=== PATIENT | male | born 1990 | race Hispanic/Latino ===

== ENCOUNTER 2020-04-11 01:29 | Inpatient (IN) | payer OTHER ==
[2020-04-11] MEDS ORDERED: NALOXONE 0.4 MG/1 ML INJ IV ONE (01:37)
[2020-04-11] MEDS ORDERED: SODIUM CHLORIDE 0.9% 1000 ML 1,000 ML IV ONE ×3 (01:37→03:39)
[2020-04-11] MEDS ORDERED: NALOXONE 0.4 MG/1 ML INJ IV PRN (01:38)
--- NOTE | 2020-04-11 01:41 | Emergency Department Report ---
History of Present Illness - General Chief Complaint: Overdose Stated Complaint: OVERDOSE Time Seen by Provider: 04/11/20 01:29 Source: police, EMS Mode of arrival: Ambulatory Limitations: Altered Mental Status - History of Present Illness Initial Comments: Patient is a 29-year-old male that presents emergency room for overdose. Patient brought in from a local [facility]pc. Patient accompanied by police. Patient brought in by EMS. EMS states they found the patient minimally responsive, minimal respiratory effort and cyanotic. Patient was given Narcan and the patient's color improved and the patient began breathing better and his oxygen saturation improved. Patient given more Narcan after arrival to the ER. After Narcan, the patient answer questions verbally. Patient states that he took heroin and methamphetamines. Patient states he does not know to get high. Patient denies suicidal and homicidal ideation. Patient denies depression. Patient denies pain. Patient denies any complaints. Patient denies recent travel. Patient denies recent international travel. Patient denies exposure to the novel coronavirus. Patient denies sick contacts. Patient denies fever and chills. Patient denies cough. Patient denies diarrhea. Patient denies coming in contact with anybody with symptoms of the novel coronavirus. Patient brought in by EMS. Report received from EMS. EMS states that the patient was given 2 of Narcan and fluids. Complaint: accidental overdose -: Sudden How Overdose Was Discovered: other Context: Accidental Overdose: wanted to get high Treatments Prior to Arrival: oxygen, narcan, IV fluids - Related Data Allergies Allergy/AdvReac Type Severity Reaction Status Date / Time divalproex sodium Allergy Unknown Verified 04/11/20 01:46 [From [facility]] ED Review of Systems ROS: Stated complaint: OVERDOSE Other details as noted in HPI Constitutional: denies: chills, fever Eyes: denies: eye pain, eye discharge, vision change ENT: denies: ear pain, throat pain Respiratory: denies: cough, shortness of breath, wheezing Cardiovascular: denies: chest pain, palpitations Endocrine: no symptoms reported Gastrointestinal: denies: abdominal pain, nausea, diarrhea Genitourinary: denies: urgency, dysuria Musculoskeletal: denies: back pain, joint swelling, arthralgia Skin: denies: rash, lesions Neurological: denies: headache, weakness, paresthesias Psychiatric: denies: anxiety, depression, auditory hallucinations, visual hallucinations, homicidal thoughts, suicidal thoughts Hematological/Lymphatic: denies: easy bleeding, easy bruising ED Past Medical Hx - Past Medical History Previous Medical History?: No - Surgical History Past Surgical History?: No - Family History Family history: no significant - Social History Smoking Status: Never Smoker Substance Use Type: Heroin, Methamphetamines ED Physical Exam - General Limitations: No Limitations General appearance: alert, in no apparent distress - Head Head exam: Present: atraumatic, normocephalic - Eye Eye exam: Present: normal appearance, PERRL Pupils: Present: normal accommodation - ENT ENT exam: Present: mucous membranes moist - Neck Neck exam: Present: normal inspection - Respiratory Respiratory exam: Present: normal lung sounds bilaterally. Absent: respiratory distress, wheezes, rales - Cardiovascular Cardiovascular Exam: Present: regular rate, normal rhythm. Absent: systolic murmur, diastolic murmur, rubs, gallop - GI/Abdominal GI/Abdominal exam: Present: soft, normal bowel sounds - Rectal Rectal exam: Present: deferred - Extremities Exam Extremities exam: Present: normal inspection - Back Exam Back exam: Present: normal inspection - Neurological Exam Neurological exam: Present: alert, oriented X3 - Psychiatric Psychiatric exam: Present: normal affect, normal mood - Skin Skin exam: Present: warm, dry, intact, normal color. Absent: rash ED Course Vital Signs 04/11/20 04/11/20 04/11/20 01:30 01:45 02:00 Temperature 97.5 F L Pulse Rate 97 H 101 H 104 H Respiratory 24 21 18 Rate Blood Pressure 117/84 Blood Pressure 123/76 [Right] O2 Sat by Pulse 97 99 Oximetry 04/11/20 04/11/20 02:15 02:30 Temperature Pulse Rate 105 H 96 H Respiratory 9 L 9 L Rate Blood Pressure 125/76 127/81 Blood Pressure [Right] O2 Sat by Pulse 99 Oximetry - Reevaluation(s) Reevaluation #1: Initial evaluation done. During initial evaluation, the patient was noted to have a decreased level of consciousness. Patient was given 2 mg of Narcan by EMS and the patient's respiratory status and oxygenation improved. Patient give n another 2 mg of Narcan here and the patient became more arousable. Patient is answering some questions now. Patient states he took some drugs but is not sure what. 04/11/20 01:36 Reevaluation #2: Patient is more alert. Patient answering questions appropriately. Patient states he took heroin and methamphetamines. 04/11/20 01:41 Reevaluation #3: I discussed all results with patient. I discussed plan of care with patient. Patient agrees with plan of care and admission. Patient to be admitted to the hospitalist service. 04/11/20 03:25 - Consultations Consultation #1: Hospitalist consulted for admission. Hospitalist to admit patient. 04/11/20 03:25 ED Medical Decision Making - Lab Data Result diagrams: 04/11/20 02:00 04/11/20 02:00 - EKG Data -: EKG Interpreted by Me EKG shows normal: sinus rhythm, axis, intervals, QRS complexes, ST-T waves Rate: tachycardia - Radiology Data Radiology results: report reviewed, image reviewed interpreted by me: Chest x-ray: No pneumonia, no pneumothorax, no foreign body, no osseous findings, no acute findings CHEST 1 VIEW INDICATION / CLINICAL INFORMATION: od. Dyspnea. FINDINGS: SUPPORT DEVICES: None. HEART / MEDIASTINUM: No significant abnormality. LUNGS / PLEURA: No significant pulmonary or pleural abnormality. No pneumothorax. ADDITIONAL FINDINGS: No significant additional findings. IMPRESSION: 1. No acute findings. CT head without contrast INDICATION : Altered mental status TECHNIQUE: Axial imaging performed from the skull apex through the skull base without the use of contrast. All CT examinations performed at this facility utilize dose modulation, iterative reconstruction or weight-based dosing, when appropriate, to reduce radiation dose to as low as reasonably achievable. COMPARISON: None FINDINGS: No acute intracranial hemorrhage or parenchymal abnormality. Vent ricles are normal in size and appear symmetric. Soft tissues including the orbits appear normal. No acute osseous abnormality. Sinuses and mastoid air cells are clear. IMPRESSION: No acute abnormality. - Medical Decision Making Patient is a 29-year-old male that presents emergency room with overdose. Patient is in a local [facility] and was brought here by EMS. EMS states they found the patient unresponsive and cyanotic and minimal respirations and history of se lf. Patient given 2 of Narcan and his respirations and responsiveness slightly improved. Patient given 2 more milligrams of Narcan in the ER and the patient became more alert. Patient's vital signs and oxygenation stable the entire time in ER. Patient had decreased responsiveness on initial evaluation. Patient had a head CT due to the altered mental status and decreased p.o. with a head CT was negative for acute findings. Patient had a chest x-ray which was normal. Patient had labs done which were consistent with abnormal LFTs and acute renal failure. Patient given fluids in the ER. Patient admitted to the hospital service for further evaluation and treatment. Patient require observation due to the acute renal failure. - Differential Diagnosis Overdose, electrolyte imbalance, altered mental status, ICH, Critical Care Time: Yes Critical care time in (mins) excluding proc time.: 35 Critical care attestation.: If time is entered above; I have spent that time in minutes in the direct care of this critically ill patient, excluding procedure time. Critical Care Time: 35 minutes ED Disposition Clinical Impression: Hyperkalemia, Decreased responsiveness, Abnormal LFTs, Hyperglycemia Overdose Qualifiers: Encounter type: initial encounter Injury intent: accidental or unintentional Qualified Code(s): T50.901A - Poisoning by unspecified drugs, medicaments and biological substances, accidental (unintentional), initial encounter Acute renal failure (ARF) Qualifiers: Acute renal failure type: unspecified Qualified Code(s): N17.9 - Acute kidney failure, unspecified Altered mental state Qualifiers: Altered mental status type: unspecified Qualified Code(s): R41.82 - Altered mental status, unspecified Disposition: DC-09 OP ADMIT IP TO THIS HOSP Is pt being admited?: Yes Does the pt Need Aspirin: No Condition: Critical Time of Disposition: 04:15
[2020-04-11] MEDS ORDERED: ONDANSETRON 4 MG/2 ML INJ ONE (02:07)
[2020-04-11] MEDS ORDERED: ONDANSETRON 4 MG/2 ML INJ IV ONE ×2 (02:10→03:58)
[2020-04-11 02:34] LABS: Hemoglobin 13.5 gm/dl (11.8-15.2); Mean Corpuscular HGB Conc 32 % (32-34); Mean Corpuscular Volume 86 fl (84-94); Platelet Count 370 K/mm3 (140-440); Red Blood Count 4.91 M/mm3 (3.65-5.03); Red Cell Distribution Width 14.1 % (13.2-15.2)
[2020-04-11 03:00] LABS: Albumin 4.2 g/dL (3.9-5); Calcium 8.5 mg/dL (8.4-10.2)
[2020-04-11 03:28] LABS: Amphetamine Screen,Urine PRESUMPTIVE POSITIVE; Benzodiazepines Screen,Urine PRESUMPTIVE NEGATIVE; Cannabinoid Screen,Urine PRESUMPTIVE NEGATIVE; Cocaine Screen,Urine PRESUMPTIVE NEGATIVE; Methadone Screen,Urine PRESUMPTIVE NEGATIVE; Opiate Screen,Urine PRESUMPTIVE NEGATIVE
[2020-04-11 03:44] LABS: Bacteria,Urine 1+ /HPF (Negative); Bilirubin,Urine NEG (Negative); Blood,Urine SM (Negative); Color,Urine Yellow (Yellow); Mucus,Urine FEW /HPF; Urobilinogen,Urine < 2.0 mg/dL (<2.0)
--- NOTE | 2020-04-11 03:54 | XRay Report ---
CHEST 1 VIEW INDICATION / CLINICAL INFORMATION: od. Dyspnea. FINDINGS: SUPPORT DEVICES: None. HEART / MEDIASTINUM: No significant abnormality. LUNGS / PLEURA: No significant pulmonary or pleural abnormality. No pneumothorax. ADDITIONAL FINDINGS: No significant additional findings. IMPRESSION: 1. No acute findings. Signer Name: Naga Cohen MD Signed: 04/11/2020 3:49 AM Workstation Name: [id number]
--- NOTE | 2020-04-11 04:04 | Cat Scan Report ---
CT head without contrast INDICATION : Altered mental status TECHNIQUE: Axial imaging performed from the skull apex through the skull base without the use of con trast. All CT examinations performed at this facility utilize dose modulation, iterative reconstruct ion or weight-based dosing, when appropriate, to reduce radiation dose to as low as reasonably achiev able. COMPARISON: None FINDINGS: No acute intracranial hemorrhage or parenchymal abnormality. Ventricles are normal in si ze and appear symmetric. Soft tissues including the orbits appear normal. No acute osseous abnorm ality. Sinuses and mastoid air cells are clear. IMPRESSION: No acute abnormality. Signer Name: Naga Cohen MD Signed: 04/11/2020 3:59 AM Workstation Name: [id number]
[2020-04-11] MEDS ORDERED: NALOXONE 2 MG/2 ML INJ ONE (04:21)
[2020-04-11 05:00] LABS: Basophils % (Manual) 0 % (0.0-1.8); Eosinophils % (Manual) 0 % (0.0-4.3); Total Cells Counted 100
[2020-04-11 05:03] LABS: Anisocytosis 1+; Ovalocytes Few; Platelet Estimate Consistent w Auto
[2020-04-11] MEDS ORDERED: ACETAMINOPHEN 325 MG TAB PO PRN (05:19)
[2020-04-11] MEDS ORDERED: ONDANSETRON 4 MG/2 ML INJ IV PRN (05:19)
--- NOTE | 2020-04-11 05:42 | History and Physical Report ---
History of Present Illness Date of examination: 04/11/20 Date of admission: 04/11/20 04:16 Chief complaint: Patient was brought in by correction officials with decreased level of consciousness History of present illness: Patient is a 29-year-old male that presents emergency room for overdose. Patient brought in from a local [facility]. Patient accompanied by police. Patient brought in by EMS , minimally responsive with decreased respirations, was given Narcan and the patient's color improved and the patient began breathing better and his oxygen saturation improved. Patient given more Narcan x 2 doses At the time of my examination patient was alert and oriented .patient states that he took heroin and methamphetamines. He denies suicidal and homicidal ideation. denies depression. Patient also had a large emesis during my evaluation and altogether apparently had 3 episodes of emesis. Earlier due to his decreased mentation, patient had a CT of the head which was normal. Upon further work-up he was noted to be in acute renal failure and multiple other lab abnormalities and is being admitted for further management. He denies exposure to coronavirus or sick contacts. Past History Past Medical History: No medical history Past Surgical History: Other (Splenectomy) Social history: smoking. denies: alcohol abuse Family history: no significant family history Medications and Allergies Allergies Allergy/AdvReac Type Severity Reaction Status Date / Time divalproex sodium Allergy Unknown Verified 04/11/20 01:46 [From [facility]] Active Meds: Active Medications Acetaminophen (Tylenol) 650 mg PO Q4H PRN PRN Reason: Pain MILD(1-3)/Fever >100.5/FITZGERALD Sodium Chloride (Nacl 0.9% 1000 Ml) 1,000 mls @ 100 mls/hr IV DIRECT TANVI Naloxone HCl (Naloxone) 0.1 mg IV Q2MIN PRN PRN Reason: Res Rate </= 8 or 02 SAT < 92% Last Admin: 04/11/20 04:29 Dose: 0.1 mg Documented by: Ondansetron HCl (Zofran) 4 mg IV Q8H PRN PRN Reason: Nausea And Vomiting Sodium Chloride (Sodium Chloride Flush Syringe 10 Ml) 10 ml IV BID TANVI Sodium Chloride (Sodium Chloride Flush Syringe 10 Ml) 10 ml IV PRN PRN PRN Reason: LINE FLUSH Review of Systems Constitutional: no weight loss, no weight gain, no fever, no chills Ears, nose, mouth and throat: no ear pain, no sore throat, no headache Cardiovascular: no chest pain, no shortness of breath, no high blood pressure Gastrointestinal: vomiting, no abdominal pain, no nausea, no diarrhea, no constipation, no hematemesis, no melena Genitourinary Male: no dysuria Rectal: no pain Musculoskeletal: no neck pain, no muscle weakness Integumentary: no rash Neurological: syncope, no seizures Psychiatric: no anxiety, no depression Exam - Constitutional Vitals: Temp Pulse Resp BP Pulse Ox 97.5 F L 88 12 115/82 94 04/11/20 01:30 04/11/20 05:00 04/11/20 05:00 04/11/20 05:00 04/11/20 04:45 General appearance: Present: no acute distress, well-nourished - EENT Eyes: Present: PERRL, EOM intact ENT: hearing intact, clear oral mucosa - Neck Neck: Present: supple, normal ROM. Absent: masses or JVD - Respiratory Respiratory effort: normal Respiratory: bilateral: CTA - Cardiovascular Rhythm: regular Heart Sounds: Present: S1 & S2 - Extremities Extremities: No edema - Abdominal General gastrointestinal: Present: soft, non-tender Male genitourinary: Present: deferred - Rectal Rectal Exam: deferred - Integumentary Integumentary: Present: clear. Absent: rash - Musculoskeletal Musculoskeletal: strength equal bilaterally - Psychiatric Psychiatric: appropriate mood/affect - Neurologic Neurologic: no focal deficits Results - Labs CBC & Chem 7: 04/11/20 02:00 04/11/20 02:00 Labs: Abnormal lab results 04/11/20 04/11/20 04/11/20 Range/Units 02:00 02:00 02:00 WBC 12.8 H (4.5-11.0) K/mm3 Seg Neuts % (Manual) 92.0 H (40.0-70.0) % Lymphocytes % (Manual) 6.0 L (13.4-35.0) % Seg Neutrophils # Man 11.8 H (1.8-7.7) K/mm3 Lymphocytes # (Manual) 0.8 L (1.2-5.4) K/mm3 Potassium 5.1 H (3.6-5.0) mmol/L Carbon Dioxide 15 L (22-30) mmol/L BUN 27 H (9-20) mg/dL Creatinine 1.6 H (0.8-1.3) mg/dL Glucose 264 H (75-100) mg/dL AST 194 H (5-40) units/L ALT 152 H (7-56) units/L Ammonia 77.0 H (25-60) umol/L Total Creatine Kinase 394 H (55-170) units/L Salicylates (2.8-20.0) mg/dL Acetaminophen (10.0-30.0) ug/mL 04/11/20 04/11/20 Range/Units 02:00 02:00 WBC (4.5-11.0) K/mm3 Seg Neuts % (Manual) (40.0-70.0) % Lymphocytes % (Manual) (13.4-35.0) % Seg Neutrophils # Man (1.8-7.7) K/mm3 Lymphocytes # (Manual) (1.2-5.4) K/mm3 Potassium (3.6-5.0) mmol/L Carbon Dioxide (22-30) mmol/L BUN (9-20) mg/dL Creatinine (0.8-1.3) mg/dL Glucose (75-100) mg/dL AST (5-40) units/L ALT (7-56) units/L Ammonia (25-60) umol/L Total Creatine Kinase (55-170) units/L Salicylates < 0.3 L (2.8-20.0) mg/dL Acetaminophen 5.0 L (10.0-30.0) ug/mL Assessment and Plan - Patient Problems (1) Acute renal failure (ARF) Current Visit: Yes Status: Acute Qualifiers: Acute renal failure type: unspecified Qualified Code(s): N17.9 - Acute kidney failure, unspecified Plan to address problem: Baseline renal function status is not known Mild IV fluids Monitor renal function Avoid nephrotoxins Consider renal consult if not improving (2) Abnormal LFTs Current Visit: Yes Status: Acute Plan to address problem: Patient denies history of hepatitis B or C Monitor LFTs Consider GI consult if repeat LFTs are not trending down (3) Decreased responsiveness Current Visit: Yes Status: Acute Plan to address problem: Secondary to acute overdose on heroine and methamphetamine Improved with Narcan x2 doses CT of the head results reviewed (4) Hyperglycemia Current Visit: Yes Status: Acute Plan to address problem: Patient denies history of diabetes Check A1c (5) Hyperkalemia Current Visit: Yes Status: Acute Plan to address problem: Mild Likely secondary to renal insufficiency/dehydration IV fluids Monitor electrolytes (6) Overdose Current Visit: Yes Status: Acute Qualifiers: Encounter type: initial encounter Injury intent: accidental or unintentional Qualified Code(s): T50.901A - Poisoning by unspecified drugs, medicaments and biological substances, accidental (unintentional), initial encounter Plan to address problem: Patient denies any history of depression or suicidal ideation Overdosed on heroin and methamphetamine Responded to Narcan (7) Leukocytosis Current Visit: Yes Status: Acute Qualifiers: Leukocytosis type: unspecified Qualified Code(s): D72.829 - Elevated white blood cell count, unspecified Plan to address problem: Likely reactive No signs of infection Monitor CBC
--- NOTE | 2020-04-11 17:07 | Progress Note ---
Assessment and Plan Assessment and plan: --Acute metabolic encephalopathy; present on admission Multifactorial, polysubstance abuse Drug overdose, acute renal failure, acute liver failure Hyperkalemia and hyperglycemia Patient more alert and awake Symptoms slightly improved Treat the underlying cause --Acute kidney injury; Due to vasomotor nephropathy Gentle hydration, avoid nephrotoxins Monitor renal function, nephrology evaluation if needed --Acute liver failure/transaminitis; Probably drug-induced versus alcohol related Closely monitor LFTs, if no improvement Check abdominal ultrasound Consider GI evaluation if needed --Hyperammonemia; Probably hepatic encephalopathy Lactulose, closely monitor ammonia levels --Hyperglycemia; Patient has no history of diabetes mellitus Accu-Chek sliding scale coverage Check hemoglobin A1c 6.2, supportive care --Hyperkalemia; Closely monitor electrolytes --Mild elevation of CK Mild rhabdomyolysis IV hydration monitor renal function Avoid nephrotoxins --DVT prophylaxis; Lovenox renal dose We will closely monitor the patient and adjust management as needed Plan of care reviewed with the patient and the security officers at the bedside As well as his nurse History Interval history: I have seen and examined the patient at the bedside this morning Correctional officers at the bedside in the room Patient complains of generalized body pains Denies nausea vomiting Admitted with possible drug/polysubstance overdose Patient is alert and awake Responding to simple commands Vital signs noted Hospitalist Physical - Constitutional Vitals: Temp Pulse Resp BP Pulse Ox 97.8 F 65 20 111/46 99 04/11/20 11:26 04/11/20 11:26 04/11/20 11:26 04/11/20 11:26 04/11/20 11:26 General appearance: Present: mild distress, well-nourished - EENT Eyes: Present: PERRL, EOM intact - Neck Neck: Present: supple, normal ROM - Respiratory Respiratory effort: normal Respiratory: bilateral: diminished, negative: rales, rhonchi, wheezing - Cardiovascular Rhythm: regular Heart Sounds: Present: S1 & S2 - Extremities Extremities: no ischemia, No edema - Abdominal General gastrointestinal: soft, non-tender, non-distended, normal bowel sounds - Integumentary Integumentary: Present: clear, warm - Psychiatric Psychiatric: appropriate mood/affect, cooperative - Neurologic Neurologic: moves all extremities Results - Labs CBC & Chem 7: 04/11/20 02:00 04/11/20 02:00 Labs: Laboratory Last Values WBC 12.8 K/mm3 (4.5-11.0) H 04/11/20 02:00 RBC 4.91 M/mm3 (3.65-5.03) 04/11/20 02:00 Hgb 13.5 gm/dl (11.8-15.2) 04/11/20 02:00 Hct 42.0 % (35.5-45.6) 04/11/20 02:00 MCV 86 fl (84-94) 04/11/20 02:00 MCH 28 pg (28-32) 04/11/20 02:00 MCHC 32 % (32-34) 04/11/20 02:00 RDW 14.1 % (13.2-15.2) 04/11/20 02:00 Plt Count 370 K/mm3 (140-440) 04/11/20 02:00 Add Manual Diff Complete 04/11/20 02:00 Total Counted 100 04/11/20 02:00 Seg Neutrophils % [place] 04/11/20 02:00 Seg Neuts % (Manual) 92.0 % (40.0-70.0) H 04/11/20 02:00 Band Neutrophils % 0 % 04/11/20 02:00 Lymphocytes % (Manual) 6.0 % (13.4-35.0) L 04/11/20 02:00 Reactive Lymphs % (Man) 0 % 04/11/20 02:00 Monocytes % (Manual) 2.0 % (0.0-7.3) 04/11/20 02:00 Eosinophils % (Manual) 0 % (0.0-4.3) 04/11/20 02:00 Basophils % (Manual) 0 % (0.0-1.8) 04/11/20 02:00 Metamyelocytes % 0 % 04/11/20 02:00 Myelocytes % 0 % 04/11/20 02:00 Promyelocytes % 0 % 04/11/20 02:00 Blast Cells % 0 % 04/11/20 02:00 Nucleated RBC % Not Reportable 04/11/20 02:00 Seg Neutrophils # Man 11.8 K/mm3 (1.8-7.7) H 04/11/20 02:00 Band Neutrophils # 0.0 K/mm3 04/11/20 02:00 Lymphocytes # (Manual) 0.8 K/mm3 (1.2-5.4) L 04/11/20 02:00 Abs React Lymphs (Man) 0.0 K/mm3 04/11/20 02:00 Monocytes # (Manual) 0.3 K/mm3 (0.0-0.8) 04/11/20 02:00 Eosinophils # (Manual) 0.0 K/mm3 (0.0-0.4) 04/11/20 02:00 Basophils # (Manual) 0.0 K/mm3 (0.0-0.1) 04/11/20 02:00 Metamyelocytes # 0.0 K/mm3 04/11/20 02:00 Myelocytes # 0.0 K/mm3 04/11/20 02:00 Promyelocytes # 0.0 K/mm3 04/11/20 02:00 Blast Cells # 0.0 K/mm3 04/11/20 02:00 WBC Morphology Not Reportable 04/11/20 02:00 Hypersegmented Neuts Not Reportable 04/11/20 02:00 Hyposegmented Neuts Not Reportable 04/11/20 02:00 Hypogranular Neuts Not Reportable 04/11/20 02:00 Smudge Cells Not Reportable 04/11/20 02:00 Toxic Granulation Not Reportable 04/11/20 02:00 Toxic Vacuolation Not Reportable 04/11/20 02:00 Dohle Bodies Not Reportable 04/11/20 02:00 Pelger-Huet Anomaly Not Reportable 04/11/20 02:00 Marge Rods Not Reportable 04/11/20 02:00 Platelet Estimate Consistent w auto 04/11/20 02:00 Clumped Platelets Not Reportable 04/11/20 02:00 Plt Clumps, EDTA Not Reportable 04/11/20 02:00 Large Platelets Not Reportable 04/11/20 02:00 Giant Platelets Not Reportable 04/11/20 02:00 Platelet Satelliting Not Reportable 04/11/20 02:00 Plt Morphology Comment Not Reportable 04/11/20 02:00 RBC Morphology Not Reportable 04/11/20 02:00 Dimorphic RBCs Not Reportable 04/11/20 02:00 Polychromasia Not Reportable 04/11/20 02:00 Hypochromasia Not Reportable 04/11/20 02:00 Poikilocytosis Not Reportable 04/11/20 02:00 Anisocytosis 1+ 04/11/20 02:00 Microcytosis Not Reportable 04/11/20 02:00 Macrocytosis Not Reportable 04/11/20 02:00 Spherocytes Not Reportable 04/11/20 02:00 Pappenheimer Bodies Not Reportable 04/11/20 02:00 Sickle Cells Not Reportable 04/11/20 02:00 Target Cells Not Reportable 04/11/20 02:00 Tear Drop Cells Not Reportable 04/11/20 02:00 Ovalocytes Few 04/11/20 02:00 Helmet Cells Not Reportable 04/11/20 02:00 Peng-[place] Bodies Not Reportable 04/11/20 02:00 [place] Rings Not Reportable 04/11/20 02:00 Jermaine Cells Not Reportable 04/11/20 02:00 Bite Cells Not Reportable 04/11/20 02:00 Crenated Cell Not Reportable 04/11/20 02:00 Elliptocytes Not Reportable 04/11/20 02:00 Acanthocytes (Spur) Not Reportable 04/11/20 02:00 Rouleaux Not Reportable 04/11/20 02:00 Hemoglobin C Crystals Not Reportable 04/11/20 02:00 Schistocytes Not Reportable 04/11/20 02:00 Malaria parasites Not Reportable 04/11/20 02:00 Albert Bodies Not Reportable 04/11/20 02:00 Hem Pathologist Commnt No 04/11/20 02:00 Sodium 140 mmol/L (137-145) 04/11/20 02:00 Potassium 5.1 mmol/L (3.6-5.0) H 04/11/20 02:00 Chloride 103.1 mmol/L (98-107) 04/11/20 02:00 Carbon Dioxide 15 mmol/L (22-30) L 04/11/20 02:00 Anion Gap 27 mmol/L 04/11/20 02:00 BUN 27 mg/dL (9-20) H 04/11/20 02:00 Creatinine 1.6 mg/dL (0.8-1.3) H 04/11/20 02:00 Estimated GFR 52 ml/min 04/11/20 02:00 BUN/Creatinine Ratio 17 % 04/11/20 02:00 Glucose 264 mg/dL (75-100) H 04/11/20 02:00 Hemoglobin A1c 6.2 % (4-6) H 04/11/20 02:00 Calcium 8.5 mg/dL (8.4-10.2) 04/11/20 02:00 Total Bilirubin 0.50 mg/dL (0.1-1.2) 04/11/20 02:00 AST 194 units/L (5-40) H 04/11/20 02:00 ALT 152 units/L (7-56) H 04/11/20 02:00 Alkaline Phosphatase 68 units/L (35-129) 04/11/20 02:00 Ammonia 77.0 umol/L (25-60) H 04/11/20 02:00 Total Creatine Kinase 394 units/L (55-170) H 04/11/20 02:00 Total Protein 6.4 g/dL (6.3-8.2) 04/11/20 02:00 Albumin 4.2 g/dL (3.9-5) 04/11/20 02:00 Albumin/Globulin Ratio 1.9 % 04/11/20 02:00 Urine Color Yellow (Yellow) 04/11/20 03:01 Urine Turbidity Slightly-cloudy (Clear) 04/11/20 03:01 Urine pH 6.0 (5.0-7.0) 04/11/20 03:01 Ur Specific [place] 1.012 (1.003-1.030) 04/11/20 03:01 Urine Protein 100 mg/dl mg/dL (Negative) 04/11/20 03:01 Urine Glucose (UA) >=500 mg/dL (Negative) 04/11/20 03:01 Urine Ketones Neg mg/dL (Negative) 04/11/20 03:01 Urine Blood Sm (Negative) 04/11/20 03:01 Urine Nitrite Neg (Negative) 04/11/20 03:01 Urine Bilirubin Neg (Negative) 04/11/20 03:01 Urine Urobilinogen < 2.0 mg/dL (<2.0) 04/11/20 03:01 Ur Leukocyte Esterase Neg (Negative) 04/11/20 03:01 Urine WBC (Auto) 3.0 /HPF (0.0-6.0) 04/11/20 03:01 Urine RBC (Auto) 7.0 /HPF (0.0-6.0) 04/11/20 03:01 Urine Bacteria (Auto) 1+ /HPF (Negative) 04/11/20 03:01 Urine Mucus Few /HPF 04/11/20 03:01 Salicylates < 0.3 mg/dL (2.8-20.0) L 04/11/20 02:00 Urine Opiates Screen Presumptive negative 04/11/20 03:01 Urine Methadone Screen Presumptive negative 04/11/20 03:01 Acetaminophen 5.0 ug/mL (10.0-30.0) L 04/11/20 02:00 Ur Barbiturates Screen Presumptive negative 04/11/20 03:01 Ur Phencyclidine Scrn Presumptive negative 04/11/20 03:01 Ur Amphetamines Screen Presumptive positive 04/11/20 03:01 U Benzodiazepines Scrn Presumptive negative 04/11/20 03:01 Urine Cocaine Screen Presumptive negative 04/11/20 03:01 U Marijuana (THC) Screen Presumptive negative 04/11/20 03:01 Drugs of Abuse Note Disclamer 04/11/20 03:01 Plasma/Serum Alcohol < 0.01 % (0-0.07) 04/11/20 02:00 Coronavirus (PCR) Negative (Negative) 04/11/20 08:38 Wh[place]/IV: IV Catheter Type [Left INT / Saline Lock Antecubital] Active Medications - Current Medications Current Medications: Generic Name Dose Route Start Last Admin Trade Name Freq PRN Reason Stop Dose Admin Acetaminophen 650 mg 04/11/20 05:19 Tylenol PO Q4H PRN Pain MILD(1-3)/Fever >100.5/FITZGERALD Sodium Chloride 1,000 mls @ 100 mls/hr 04/11/20 05:30 Nacl 0.9% 1000 Ml IV DIRECT TANVI Naloxone HCl 0.1 mg 04/11/20 01:38 04/11/20 04:29 Naloxone IV 0.1 mg Q2MIN PRN Administration Res Rate </= 8 or 02 SAT < 92% Ondansetron HCl 4 mg 04/11/20 05:19 Zofran IV Q8H PRN Nausea And Vomiting Sodium Chloride 10 ml 04/11/20 10:00 04/11/20 09:13 Sodium Chloride Flush Syringe 10 Ml IV 10 ml BID TANVI Administration Sodium Chloride 10 ml 04/11/20 05:19 Sodium Chloride Flush Syringe 10 Ml IV PRN PRN LINE FLUSH
[2020-04-12 05:13] LABS: Basophils % (Auto) 0.5 % (0.0-1.8); Eosinophils # (Auto) 0.2 K/mm3 (0.0-0.4); Eosinophils % (Auto) 2.6 % (0.0-4.3); Hematocrit 35.4 % (35.5-45.6); Hemoglobin 11.7 gm/dl (11.8-15.2); Lymphocytes # (Auto) 2.2 K/mm3 (1.2-5.4); Lymphocytes % (Auto) 29.1 % (13.4-35.0); Mean Corpuscular HGB Conc 33 % (32-34); Mean Corpuscular Volume 86 fl (84-94); Monocytes # (Auto) 0.8 K/mm3 (0.0-0.8); Monocytes % (Auto) 10.1 % (0.0-7.3); Platelet Count 287 K/mm3 (140-440); Red Cell Distribution Width 14.4 % (13.2-15.2)
[2020-04-12 05:27] LABS: Alanine Aminotransferase 78 units/L (7-56); Albumin 3.5 g/dL (3.9-5); BUN/Creatinine Ratio 11; Blood Urea Nitrogen 10 mg/dL (9-20); Calcium 8.2 mg/dL (8.4-10.2); Hemolysis Index 26
[2020-04-12] MEDS: SODIUM CHLORIDE 0.9% 1000 ML 1,000 ML IV SCH ×2 (09:45→20:14)
--- NOTE | 2020-04-12 17:59 | Progress Note ---
Assessment and Plan Assessment and plan: --Acute metabolic encephalopathy; present on admission. Multifactorial, polysubstance abuse Drug overdose, acute renal failure, acute liver failure Hyperkalemia and hyperglycemia Patient more alert and awake Completely resolved, patient is alert awake oriented x3 Not in acute distress responds appropriately --Acute kidney injury; resolved Due to vasomotor nephropathy Continue IV fluids, creatinine 1.6-0.9[n] --Acute liver failure/transaminitis; Probably drug-induced versus alcohol related LFTs are trending down --Hyperammonemia; Probably hepatic encephalopathy Lactulose, closely monitor ammonia levels --Hyperglycemia; Patient has no history of diabetes mellitus Accu-Chek sliding scale coverage Check hemoglobin A1c 6.2, supportive care --Hyperkalemia; corrected --Mild elevation of CK; improved IV hydration monitor renal function Avoid nephrotoxins --DVT prophylaxis; Lovenox renal dose Will monitor closely and adjust management as needed Possible discharge tomorrow if stable History Interval history: I have seen and examined the patient at the bedside this morning Patient's chart and medications reviewed media liaison officer at the bedside Patient feels better alert and awake No new complaints Vital signs noted Hospitalist Physical - Constitutional Vitals: Temp Pulse Resp BP Pulse Ox 98.5 F 62 18 111/58 96 04/12/20 08:22 04/12/20 08:22 04/12/20 08:22 04/12/20 08:22 04/12/20 08:22 General appearance: Present: no acute distress, well-nourished, other (Alert and awake, responding appropriately) - EENT Eyes: Present: PERRL, EOM intact - Neck Neck: Present: supple, normal ROM - Respiratory Respiratory effort: normal Respiratory: bilateral: diminished, negative: rales, rhonchi, wheezing - Cardiovascular Rhythm: regular Heart Sounds: Present: S1 & S2 - Extremities Extremities: no ischemia, No edema - Abdominal General gastrointestinal: soft, non-tender, non-distended, normal bowel sounds - Integumentary Integumentary: Present: clear, warm - Psychiatric Psychiatric: appropriate mood/affect, cooperative - Neurologic Neurologic: moves all extremities Results - Labs CBC & Chem 7: 04/12/20 04:44 04/12/20 04:44 Labs: Laboratory Last Values WBC 7.5 K/mm3 (4.5-11.0) 04/12/20 04:44 RBC 4.10 M/mm3 (3.65-5.03) 04/12/20 04:44 Hgb 11.7 gm/dl (11.8-15.2) L 04/12/20 04:44 Hct 35.4 % (35.5-45.6) L D 04/12/20 04:44 MCV 86 fl (84-94) 04/12/20 04:44 MCH 29 pg (28-32) 04/12/20 04:44 MCHC 33 % (32-34) 04/12/20 04:44 RDW 14.4 % (13.2-15.2) 04/12/20 04:44 Plt Count 287 K/mm3 (140-440) 04/12/20 04:44 Lymph % (Auto) 29.1 % (13.4-35.0) 04/12/20 04:44 [place] % (Auto) 10.1 % (0.0-7.3) H 04/12/20 04:44 Eos % (Auto) 2.6 % (0.0-4.3) 04/12/20 04:44 Baso % (Auto) 0.5 % (0.0-1.8) 04/12/20 04:44 Lymph # (Auto) 2.2 K/mm3 (1.2-5.4) 04/12/20 04:44 [place] # (Auto) 0.8 K/mm3 (0.0-0.8) 04/12/20 04:44 Eos # (Auto) 0.2 K/mm3 (0.0-0.4) 04/12/20 04:44 Baso # (Auto) 0.0 K/mm3 (0.0-0.1) 04/12/20 04:44 Add Manual Diff Complete 04/11/20 02:00 Total Counted 100 04/11/20 02:00 Seg Neutrophils % 57.7 % (40.0-70.0) 04/12/20 04:44 Seg Neuts % (Manual) 92.0 % (40.0-70.0) H 04/11/20 02:00 Band Neutrophils % 0 % 04/11/20 02:00 Lymphocytes % (Manual) 6.0 % (13.4-35.0) L 04/11/20 02:00 Reactive Lymphs % (Man) 0 % 04/11/20 02:00 Monocytes % (Manual) 2.0 % (0.0-7.3) 04/11/20 02:00 Eosinophils % (Manual) 0 % (0.0-4.3) 04/11/20 02:00 Basophils % (Manual) 0 % (0.0-1.8) 04/11/20 02:00 Metamyelocytes % 0 % 04/11/20 02:00 Myelocytes % 0 % 04/11/20 02:00 Promyelocytes % 0 % 04/11/20 02:00 Blast Cells % 0 % 04/11/20 02:00 Nucleated RBC % Not Reportable 04/11/20 02:00 Seg Neutrophils # 4.3 K/mm3 (1.8-7.7) 04/12/20 04:44 Seg Neutrophils # Man 11.8 K/mm3 (1.8-7.7) H 04/11/20 02:00 Band Neutrophils # 0.0 K/mm3 04/11/20 02:00 Lymphocytes # (Manual) 0.8 K/mm3 (1.2-5.4) L 04/11/20 02:00 Abs React Lymphs (Man) 0.0 K/mm3 04/11/20 02:00 Monocytes # (Manual) 0.3 K/mm3 (0.0-0.8) 04/11/20 02:00 Eosinophils # (Manual) 0.0 K/mm3 (0.0-0.4) 04/11/20 02:00 Basophils # (Manual) 0.0 K/mm3 (0.0-0.1) 04/11/20 02:00 Metamyelocytes # 0.0 K/mm3 04/11/20 02:00 Myelocytes # 0.0 K/mm3 04/11/20 02:00 Promyelocytes # 0.0 K/mm3 04/11/20 02:00 Blast Cells # 0.0 K/mm3 04/11/20 02:00 WBC Morphology Not Reportable 04/11/20 02:00 Hypersegmented Neuts Not Reportable 04/11/20 02:00 Hyposegmented Neuts Not Reportable 04/11/20 02:00 Hypogranular Neuts Not Reportable 04/11/20 02:00 Smudge Cells Not Reportable 04/11/20 02:00 Toxic Granulation Not Reportable 04/11/20 02:00 Toxic Vacuolation Not Reportable 04/11/20 02:00 Dohle Bodies Not Reportable 04/11/20 02:00 Pelger-Huet Anomaly Not Reportable 04/11/20 02:00 Marge Rods Not Reportable 04/11/20 02:00 Platelet Estimate Consistent w auto 04/11/20 02:00 Clumped Platelets Not Reportable 04/11/20 02:00 Plt Clumps, EDTA Not Reportable 04/11/20 02:00 Large Platelets Not Reportable 04/11/20 02:00 Giant Platelets Not Reportable 04/11/20 02:00 Platelet Satelliting Not Reportable 04/11/20 02:00 Plt Morphology Comment Not Reportable 04/11/20 02:00 RBC Morphology Not Reportable 04/11/20 02:00 Dimorphic RBCs Not Reportable 04/11/20 02:00 Polychromasia Not Reportable 04/11/20 02:00 Hypochromasia Not Reportable 04/11/20 02:00 Poikilocytosis Not Reportable 04/11/20 02:00 Anisocytosis 1+ 04/11/20 02:00 Microcytosis Not Reportable 04/11/20 02:00 Macrocytosis Not Reportable 04/11/20 02:00 Spherocytes Not Reportable 04/11/20 02:00 Pappenheimer Bodies Not Reportable 04/11/20 02:00 Sickle Cells Not Reportable 04/11/20 02:00 Target Cells Not Reportable 04/11/20 02:00 Tear Drop Cells Not Reportable 04/11/20 02:00 Ovalocytes Few 04/11/20 02:00 Helmet Cells Not Reportable 04/11/20 02:00 Peng-[place] Bodies Not Reportable 04/11/20 02:00 [place] Rings Not Reportable 04/11/20 02:00 Jermaine Cells Not Reportable 04/11/20 02:00 Bite Cells Not Reportable 04/11/20 02:00 Crenated Cell Not Reportable 04/11/20 02:00 Elliptocytes Not Reportable 04/11/20 02:00 Acanthocytes (Spur) Not Reportable 04/11/20 02:00 Rouleaux Not Reportable 04/11/20 02:00 Hemoglobin C Crystals Not Reportable 04/11/20 02:00 Schistocytes Not Reportable 04/11/20 02:00 Malaria parasites Not Reportable 04/11/20 02:00 Albert Bodies Not Reportable 04/11/20 02:00 Hem Pathologist Commnt No 04/11/20 02:00 Sodium 138 mmol/L (137-145) 04/12/20 04:44 Potassium 4.4 mmol/L (3.6-5.0) 04/12/20 04:44 Chloride 105.4 mmol/L (98-107) 04/12/20 04:44 Carbon Dioxide 28 mmol/L (22-30) D 04/12/20 04:44 Anion Gap 9 mmol/L 04/12/20 04:44 BUN 10 mg/dL (9-20) 04/12/20 04:44 Creatinine 0.9 mg/dL (0.8-1.3) 04/12/20 04:44 Estimated GFR > 60 ml/min 04/12/20 04:44 BUN/Creatinine Ratio 11 % 04/12/20 04:44 Glucose 97 mg/dL (75-100) 04/12/20 04:44 Hemoglobin A1c 6.2 % (4-6) H 04/11/20 02:00 Calcium 8.2 mg/dL (8.4-10.2) L 04/12/20 04:44 Total Bilirubin 0.40 mg/dL (0.1-1.2) 04/12/20 04:44 AST 31 units/L (5-40) 04/12/20 04:44 ALT 78 units/L (7-56) H 04/12/20 04:44 Alkaline Phosphatase 44 units/L (35-129) 04/12/20 04:44 Ammonia 77.0 umol/L (25-60) H 04/11/20 02:00 Total Creatine Kinase 394 units/L (55-170) H 04/11/20 02:00 Total Protein 5.2 g/dL (6.3-8.2) L 04/12/20 04:44 Albumin 3.5 g/dL (3.9-5) L 04/12/20 04:44 Albumin/Globulin Ratio 2.1 % 04/12/20 04:44 Urine Color Yellow (Yellow) 04/11/20 03:01 Urine Turbidity Slightly-cloudy (Clear) 04/11/20 03:01 Urine pH 6.0 (5.0-7.0) 04/11/20 03:01 Ur Specific [place] 1.012 (1.003-1.030) 04/11/20 03:01 Urine Protein 100 mg/dl mg/dL (Negative) 04/11/20 03:01 Urine Glucose (UA) >=500 mg/dL (Negative) 04/11/20 03:01 Urine Ketones Neg mg/dL (Negative) 04/11/20 03:01 Urine Blood Sm (Negative) 04/11/20 03:01 Urine Nitrite Neg (Negative) 04/11/20 03:01 Urine Bilirubin Neg (Negative) 04/11/20 03:01 Urine Urobilinogen < 2.0 mg/dL (<2.0) 04/11/20 03:01 Ur Leukocyte Esterase Neg (Negative) 04/11/20 03:01 Urine WBC (Auto) 3.0 /HPF (0.0-6.0) 04/11/20 03:01 Urine RBC (Auto) 7.0 /HPF (0.0-6.0) 04/11/20 03:01 Urine Bacteria (Auto) 1+ /HPF (Negative) 04/11/20 03:01 Urine Mucus Few /HPF 04/11/20 03:01 Salicylates < 0.3 mg/dL (2.8-20.0) L 04/11/20 02:00 Urine Opiates Screen Presumptive negative 04/11/20 03:01 Urine Methadone Screen Presumptive negative 04/11/20 03:01 Acetaminophen 5.0 ug/mL (10.0-30.0) L 04/11/20 02:00 Ur Barbiturates Screen Presumptive negative 04/11/20 03:01 Ur Phencyclidine Scrn Presumptive negative 04/11/20 03:01 Ur Amphetamines Screen Presumptive positive 04/11/20 03:01 U Benzodiazepines Scrn Presumptive negative 04/11/20 03:01 Urine Cocaine Screen Presumptive negative 04/11/20 03:01 U Marijuana (THC) Screen Presumptive negative 04/11/20 03:01 Drugs of Abuse Note Disclamer 04/11/20 03:01 Plasma/Serum Alcohol < 0.01 % (0-0.07) 04/11/20 02:00 Coronavirus (PCR) Negative (Negative) 04/11/20 08:38 Microbiology: Microbiology 04/11/20 Unknown Nares - Right MRSA Culture - Preliminary [place]/IV: Voiding Method Toilet IV Catheter Type [Left INT / Saline Lock Antecubital] Active Medications - Current Medications Current Medications: Generic Name Dose Route Start Last Admin Trade Name Freq PRN Reason Stop Dose Admin Acetaminophen 650 mg 04/11/20 05:19 04/11/20 21:05 Tylenol PO 650 mg Q4H PRN Administration Pain MILD(1-3)/Fever >100.5/FITZGERALD Sodium Chloride 1,000 mls @ 100 mls/hr 04/11/20 05:30 04/12/20 09:45 Nacl 0.9% 1000 Ml IV 100 mls/hr DIRECT TANVI Administration Naloxone HCl 0.1 mg 04/11/20 01:38 04/11/20 04:29 Naloxone IV 0.1 mg Q2MIN PRN Administration Res Rate </= 8 or 02 SAT < 92% Ondansetron HCl 4 mg 04/11/20 05:19 Zofran IV Q8H PRN Nausea And Vomiting Sodium Chloride 10 ml 04/11/20 10:00 04/12/20 09:46 Sodium Chloride Flush Syringe 10 Ml IV 10 ml BID TANVI Administration Sodium Chloride 10 ml 04/11/20 05:19 Sodium Chloride Flush Syringe 10 Ml IV PRN PRN LINE FLUSH
[2020-04-13 06:59] LABS: Alanine Aminotransferase 53 units/L (7-56); Albumin 3.5 g/dL (3.9-5)
[2020-04-13 08:22] VITALS: BP 118/68
--- NOTE | 2020-04-13 10:14 | Discharge Summary ---
Providers - Providers Date of Admission: 04/11/20 15:18 Date of discharge: 04/13/20 Attending physician: GEOFF CHOUDHARY [facility] Condition: Critical Disposition: [id number]/[place]-[id number]/LAW ENFORCEMENT Time spent for discharge: 32 min Core Measure Documentation - Palliative Care Palliative Care/ Comfort Measures: Not Applicable - Core Measures Any of the following diagnoses?: none Exam - Constitutional Vitals: Temp Pulse Resp BP Pulse Ox 98.4 F 54 L 20 118/68 97 04/13/20 08:15 04/13/20 08:15 04/13/20 05:14 04/13/20 08:15 04/13/20 08:15 General appearance: Present: no acute distress, well-nourished - EENT Eyes: Present: PERRL, EOM intact - Neck Neck: Present: supple, normal ROM - Respiratory Respiratory effort: normal Respiratory: bilateral: diminished, negative: rales, rhonchi, wheezing - Cardiovascular Rhythm: regular Heart Sounds: Present: S1 & S2 - Extremities Extremities: no ischemia, normal temperature - Abdominal General gastrointestinal: Present: soft, non-tender, non-distended, normal bowel sounds - Integumentary Integumentary: Present: clear, warm - Musculoskeletal Musculoskeletal: strength equal bilaterally - Psychiatric Psychiatric: appropriate mood/affect, cooperative - Neurologic Neurologic: moves all extremities Plan Activity: no restrictions Diet: regular Additional Instructions: Advised to quit recreational drug use Follow up with: SUE BAUGH MD [Primary Care Provider] - 7 Days
== END 2020-04-13 13:04 | DRG 917 ==
LOC: ED 01:29 → 4A 04:16 → OBSVTOIN 15:18
PROVIDERS: ADMIT Internal Medicine; ATTEND Internal Medicine
DX: T50.901A Poisoning by unspecified drugs, medicaments and biological substances, accidental (unintentional), initial encounter (principal); G93.41 Metabolic encephalopathy; N17.0 Acute kidney failure with tubular necrosis; E72.20 Disorder of urea cycle metabolism, unspecified; E87.5 Hyperkalemia; Z20.828 Contact with and (suspected) exposure to other viral communicable diseases; F19.10 Other psychoactive substance abuse, uncomplicated; R73.9 Hyperglycemia, unspecified; R74.01 Elevation of levels of liver transaminase levels; K72.90 Hepatic failure, unspecified without coma; D72.829 Elevated white blood cell count, unspecified; Z90.81 Acquired absence of spleen; Y92.89 Other specified places as the place of occurrence of the external cause
CPT/HCPCS: 36415; 70450; 71045; 80053; 80076; 80307; 80320; 81001; 82140; 82550; 83036; 85007; 85025; 87116; 93005; 96374; 96375; G0378; G0480; J2310; J2405; J7030; U0003